=== PATIENT | male | born 1945 | race Caucasian/White ===

== ENCOUNTER 2023-08-25 13:52 | Emergency (ER) | payer MEDICARE, OTHER ==
[~2023-08-25 13:52] MED LIST: Iopamidol-370 76% 500 ML MDV (1 ML CHARGE) ONE
[2023-08-25 14:25] LABS: #Monocytes 0.6 thou/uL (0.11-0.59); #Neutrophils 9.3 thou/uL (1.40-6.50); %Basophils 0.4 % (0.0-1.0); %Eosinophils 0.4 % (0.0-10.0); %Lymphocytes 7.6 % (21.0-51.0); %Monocytes 5.6 % (0.0-10.0); %Neutrophils 85.5 % (42.0-75.0); Hemoglobin 14.3 g/dL (14.0-18.0); Mean Corpuscular Hemoglobin 32.9 pg (27.0-31.0); Mean Corpuscular Volume 96.6 fl (78.0-98.0); Mean Platelet Volume 9.8 fL (7.4-10.4); Platelet Count 171 10x3/uL (130-400); RBC Distribution Width 12.9 % (11.5-14.5); Red Blood Cell (RBC) Count 4.35 mill/uL (4.70-6.10); White Blood Cell (WBC) Count 10.9 10x3/uL (4.8-10.8)
[2023-08-25 14:38] LABS: INR-International Normal Ratio 1.3; PTT 35.3 sec (22.9-36.1); Prothrombin Time 16.3 sec (12.0-14.7)
[2023-08-25 14:52] LABS: Troponin I 0.021 ng/mL (< 0.028)
[2023-08-25 14:54] LABS: ALT (SGPT) 23 U/L (8-55); AST (SGOT) 28 U/L (5-34); Albumin 4.2 g/dL (3.4-4.8); Alkaline Phosphatase 54 U/L (40-110); Anion Gap 12 mmol/L (10-20); BUN (Urea Nitrogen) 15 mg/dL (8.4-25.7); Bilirubin, Total 0.4 mg/dL (0.2-1.2); Calc. Creatinine Clearance 0 mL/min (70-130); Calcium 9.5 mg/dL (7.8-10.44); Carbon Dioxide 25 mmol/L (23-31); Chloride 107 mmol/L (98-107); Estimated GFR 71; Globulin 2.8 g/dL (2.4-3.5); Glucose 135 mg/dL (83-110); Lipase 27 U/L (8-78); Sodium 140 mmol/L (136-145)
[2023-08-25] MEDS ORDERED: Ondansetron PF 4 MG/2 ML Vial ONE (14:59)
[2023-08-25] MEDS ORDERED: Morphine 4 MG/ML VIAL ONE (14:59)
[2023-08-25 15:41] LABS: Bacteria/HPF None Seen HPF (None Seen); Bilirubin Negative (Negative); Blood, Urine Negative (Negative); CAUTI Indications for Culture Pelvic or flank pain; Clarity Clear (Clear); Glucose, Urine (Dipstick) Normal (Negative); Ketone, Urine Negative (Negative); Leukocyte Negative Leu/uL (Negative); Nitrite Negative (Negative); Protein, Urine (Dipstick) 10 mg/dL (Neg-Trace); RBC/HPF 0-3 HPF (0-3); Specific Gravity, Urine 1.019 (1.002-1.036); Squamous Epithelial 0-3 HPF (0-3); Urobilinogen Normal mg/dL (Less than 2); WBC/HPF 0-3 HPF (0-3)
[2023-08-25 15:43] LABS: Urine Culture Reflex No No
== END 2023-08-25 17:26 | disposition home or self-care (01) ==
LOC: ERS 13:52
DX: S30.1XXA Contusion of abdominal wall, initial encounter (principal); E78.5 Hyperlipidemia, unspecified; W20.8XXA Other cause of strike by thrown, projected or falling object, initial encounter
CPT/HCPCS: 36415; 70450; 71260; 72125; 74177; 80053; 81001; 83690; 84484; 85025; 85610; 85730; 96374; 96375; J2270; J2405; Q9967